=== PATIENT | female | born 1985 | race Caucasian/White ===

== ENCOUNTER 2018-01-21 18:24 | Emergency (ER) | payer MEDICAID ==
--- NOTE | 2018-01-21 18:34 | ER Report ---
History and Physical Time Seen By MD: 18:34 Hx. of Stated Complaint: PT REPORTS SORE THROAT AND EAR PAIN SINCE WEDNESDAY HPI/ROS CHIEF COMPLAINT: Sore throat, ear pain, fever HISTORY OF PRESENT ILLNESS: 32-year-old female patient presents to emergency room with complaint of a sore throat, ear pain and fever. Patient states has been going on since she arrived on Wednesday. Patient states that she's been eating and drinking without any difficulties. She denies having any nausea or diarrhea. Patient states she did have one episode of vomiting. Patient states that she is not taking any medication for this. She states that 2 days ago she had a fever greater than 101. She denies having any chest pain, however she states she has been short of breath and has had a cough. Patient states that she has no pertinent medical history. Allergies: Coded Allergies: No Known Drug Allergies (Unverified , 01/21/18) Home Meds Active Scripts Azithromycin 250 Mg Tab (AZITHROMYCIN 250 MG TAB) 250 Mg Tablet, 1 TAB PO QDAY, #6 TAB Take 2 tabs today and then 1 tab a day until gone. Prov:FIDEL WELCH 01/21/18 Past Medical/Surgical History Patient has no pertinent past medical history. Patient has a surgical history of D&C, tubal ligation, breast augmentation. Reviewed Nurses Notes: Yes Constitutional Vital Sign - Last 24 Hours 01/21/18 01/21/18 01/21/18 01/21/18 18:28 18:30 18:39 18:54 Temp 98.4 Pulse 106 92 91 Resp 18 B/P (MAP) 129/85 118/82 (94) Pulse Ox 98 97 96 O2 Delivery Room Air 01/21/18 01/21/18 01/21/18 01/21/18 19:00 19:09 19:51 19:51 Pulse 92 85 92 Resp 16 14 B/P (MAP) 108/78 (88) 132/85 (101) Pulse Ox 88 92 O2 Delivery Room Air Physical Exam General Appearance: The patient is alert, has no immediate need for airway protection and no current signs of toxicity. ENT: Tympanic membranes are pearly-felton, auditory canals are patent, mucous membranes are moist. Patient did have some purulent drainage noted on the right tonsil. Respiratory: Chest is non tender, lungs are clear to auscultation. Cardiac: regular rate and rhythm Gastrointestinal: Abdomen is soft and non tender, no masses, bowel sounds normal. Musculoskeletal: Neck: Neck is supple and non tender. Extremities have full range of motion and are non tender. Skin: No rashes or lesions. DIFFERENTIAL DIAGNOSIS: After history and physical exam differential diagnosis was considered for strep, viral upper respiratory infection, altitude sickness. Medical Decision Making Data Points Laboratory Hematology Test 01/21/18 18:46 Group A Streptococcus Screen Negative (NEGATIVE) Chemistry Test 01/21/18 18:46 Group A Streptococcus Screen Negative (NEGATIVE) EKG/Imaging Imaging Exam type: CHEST PA AND LAT History: cough, short of breath Comparison: None. Findings: Increased density overlying the right middle lobe could represent an infiltrate. No pleural effusion or pneumothorax. Heart size is normal. The osseous structures are otherwise unremarkable. IMPRESSION: 1. Subtle increased density overlying the right middle lobe could represent a subtle infiltrate. Report Dictated By: Abiel Molina MD at 01/21/2018 7:27 PM Report E-Signed By: Abiel Molina MD at 01/21/2018 7:28 PM ED Course/Re-evaluation ED Course Patient is admitted and examined, history and physical were obtained. Differential diagnoses were considered. On examination patient did have white pustules on the right tonsil. Lungs were clear, heart was regular, abdomen soft nontender. A strep screen and a chest x-ray were done. Socially was negative, the chest x-ray showed a subtle infiltrate in the right middle lobe. I discussed this with the patient and her significant other. We'll go ahead and treat her for pneumonia with azithromycin. We will also give patient an inhaler here in the emergency room. She is follow-up with primary care provider when she returns home to [place]. She is to return to emergency room if condition worsens. Patient and her significant other verbalized understanding and agreement with plan. Decision to Disposition Date: Jan 21, 2018 Decision to Disposition Time: 19:42 Depart Departure Latest Vital Signs Vital Signs Date Time Temp Pulse Resp B/P (MAP) Pulse Ox O2 Delivery O2 Flow Rate FiO2 01/21/18 19:51 92 14 01/21/18 19:51 132/85 (101) 92 Room Air 01/21/18 18:28 98.4 Impression: Primary Impression: Pneumonia Condition: Improved Disposition: HOME OR SELF-CARE New Scripts Azithromycin 250 Mg Tab (AZITHROMYCIN 250 MG TAB) 250 Mg Tablet 1 TAB PO QDAY, #6 TAB Take 2 tabs today and then 1 tab a day until gone. Prov: FIDEL WELCH 01/21/18 Patient Instructions: Community Acquired Pneumonia (ED) Additional Instructions: Increase fluid intake. Get plenty of rest. Follow up with your primary care provider in the next week. Take Tylenol or Ibuprofen as needed for any fevers or chills. Return to the ER if condition worsens. Problem Qualifiers Primary Impression: Pneumonia Pneumonia type: due to unspecified organism Laterality: right Lung location : middle lobe of lung Qualified Codes: J18.1 - Lobar pneumonia, unspecified organism FIDEL WELCH Jan 21, 2018 18:34
--- NOTE | 2018-01-21 19:32 | RADIOLOGY IMAGING REPORT ---
FACILITY: [facility] PATIENT NAME: Ama Titus : 1985 MR: [id number] V: [id number] EXAM DATE: [id number] ORDERING PHYSICIAN: FIDEL WELCH TECHNOLOGIST: Location: [facility] [place] Patient: Ama Titus : 1985 Visit/Account:[id number] Date of Sevice: 01/21/2018 Exam type: CHEST PA AND LAT History: cough, short of breath Comparison: None. Findings: Increased density overlying the right middle lobe could represent an infiltrate. No pleural effusion or pneumothorax. Heart size is normal. The osseous structures are otherwise unremarkable. IMPRESSION: 1. Subtle increased density overlying the right middle lobe could represent a subtle infiltrate. Report Dictated By: Abiel Molina MD at 01/21/2018 7:27 PM Report E-Signed By: Abiel Molina MD at 01/21/2018 7:28 PM WSN:[id number]
[2018-01-21] MEDS ORDERED: AZIT-18 PO (19:40)
[2018-01-21] MEDS ORDERED: ALBUTEROL 8 GM INHALER INH ONE (19:45)
[2018-01-21 20:00] VITALS: BP 108/76
== END 2018-01-21 20:06 | disposition home or self-care (01) ==
LOC: ER 18:36
DX: J18.1 Lobar pneumonia, unspecified organism (principal)
CPT/HCPCS: 71046; 87081; 87880; 94640; 99283; J3535